=== PATIENT | female | born 1965 | race Caucasian/White ===

== ENCOUNTER → 2016-11-18 | Outpatient (CLI) | payer BC ==
[~2016-11-18] MED LIST: ASPIRIN CHILDRE81 M1; BUPROPION HYDR100 M2 PO; BUSPIRONE HCL10 MG PO; DICLOFENAC 50MG50 MG PO; DIFLUCAN100 M1 PO; ESTRADIOL1 MG PO; GABAPENTIN300 MG PO; KEFLEX 500MG.500 MG PO; LISINOPRIL 5MG T5 MG; LORAZEPAM1 POW; MEDROXYPROGEST2.5 MG; METFORMIN 500M500 M1; METOPROLOL25 MG PO; MULTIVITAMIN1 SGL; OMEGA-3100 MG; OMEPRAZOLE20 M1 PO; TRAMADOL50 M1 PO; VIIBRYD40 MG PO; VITAMIN B122500 MC1; WARFARIN SODIUM10 MG PO
--- NOTE | 2016-11-18 09:57 | RADIOLOGY REPORT PS360 ---
US RUQ-(ABD LTD)1ORGAN/QUAD/FU HISTORY: ELEVATED LIVER ENZYMES ORDERING PHYSICIAN: Yoandy Chan MD PATIENT AGE: 51 years COMPARISON: None FINDINGS: PANCREAS:Unremarkable. No obvious mass or abnormal fluid collection. No ductal dilatation LIVER:Increased echogenicity of the liver consistent with hepatic steatosis. No focal liver lesion or below dilatation. There is appropriate directional blood flow within the portal vein. Common bile duct is normal at 4 mm. Portal vein is normal at 10 mm. RIGHT KIDNEY:Unremarkable. Normal size and echogenicity. No hydronephrosis GALLBLADDER:Status post cholecystectomy. IMPRESSION: 1. Fatty liver. 2. Prior cholecystectomy
== END ==
LOC: RAD 11-10 09:00
DX: R79.89 Other specified abnormal findings of blood chemistry (principal); R94.5 Abnormal results of liver function studies